=== PATIENT | male | born 1990 | race African-American/Black ===

== ENCOUNTER 2019-01-13 20:12 | Emergency (ER) | payer OTHER ==
[~2019-01-13] VITALS: Ht 185.4 cm; Wt 104.3 kg
[2019-01-13 20:24] VITALS: BP 133/75
--- NOTE | 2019-01-13 20:27 | NUR ---
ED Nurse Note: pt walked in c/o left eye pain and itching w/ swelling x 2days, pt reports blurry vision as well. no discharge but reports tearing. Noted redness with swelling eyelid, but no discharge at this time. ERMD at the bedside, visual acuity done, will cont monitor.
[2019-01-13] MEDS ORDERED: Fluorescein Strips LEFT EYE ONE (20:45)
[2019-01-13] MEDS ORDERED: Tetracaine 0.5% Opth 4ml Soln LEFT EYE ONE (20:45)
[2019-01-13] MEDS ORDERED: CLARITIN10 M2 ORAL (21:07)
[2019-01-13] MEDS ORDERED: NAPHCON-A EYE D15 ML OP (21:07)
[2019-01-13] MEDS ORDERED: GENTAK5 ML LEFT EYE (21:07)
--- NOTE | 2019-01-13 21:12 | NUR ---
ED Nurse Note: pt cleared to be d/c per ERMD, pt discharge and aftercare instruction provided w/ prescription, pt education done via discussion and handout, pt advised to follow up with plastic surgeon, return to ed if sx worsen or new sx develop, pt verbalized understanding and agrees with plan, pt left w/ all belongings.
[2019-01-13 21:14] VITALS: BP 133/75
--- NOTE | 2019-01-13 21:26 | Emergency Room Report ---
History of Present Illness General Chief Complaint: Eye Problems Source: Patient Present Illness HPI Patient is a 28-year-old male presented after increased left-sided eye discomfort which is been present for approximately 2 days. Patient had a noticed increased left eye swelling. He reports having some increased blurring of his vision. He denies any recent trauma. Patient denies any flashing lights or floaters. He reports having some moderate eyelid pain. Allergies: Coded Allergies: No Known Allergies (Unverified , 01/13/19) Patient History Past Medical History: see triage record Reviewed Nursing Documentation: PMH: Agreed; PSxH: Agreed Nursing Documentation-PMH Past Medical History: No Stated History Review of Systems All Other Systems: negative except mentioned in HPI Physical Exam Vital Signs Date Time Temp Pulse Resp B/P (MAP) Pulse Ox O2 Delivery O2 Flow Rate FiO2 01/13/19 20:18 97.9 60 16 133/75 98 Room Air General Appearance: well appearing, no apparent distress, alert, GCS 15 Head: normocephalic, atraumatic Eyes: bilateral eye PERRL, bilateral eye EOMI ENT: hearing grossly normal, normal voice Neck: full range of motion, supple Respiratory: chest non-tender, lungs clear, no respiratory distress, speaking full sentences Gastrointestinal: normal inspection Musculoskeletal: no calf tenderness Neurologic: normal inspection, alert, oriented x3, responsive, normal gait Psychiatric: mood/affect normal Skin: no rash Medical Decision Making Diagnostic Impression: Primary Impression: Conjunctivitis ER Course Patient presented for left eye lid swelling. Differential diagnosis include was not limited to stye, conjunctivitis, iritis among others. Patient has a benign exam and does not appear to require any further imaging or laboratory testing at this time. The patient is advised to follow up with triage specialist in 1-2 days. Patient is advised to return if any worsening condition or if any changes in status that are concerning. This report is dictated with [employer] software which may occasionally lead to discrepancies related to use of this software. Last Vital Signs Date Time Temp Pulse Resp B/P (MAP) Pulse Ox O2 Delivery O2 Flow Rate FiO2 01/13/19 21:14 97.9 60 16 133/75 98 Room Air Status: improved Disposition: HOME, SELF-CARE Condition: Stable Scripts Gentamicin Sulfate* (GENTAK*) 5 Ml Drops 1 DROP LEFT EYE Q4H, #1 DROP 0 Refills Prov: Aram Stratton MD 01/13/19 Loratadine (CLARITIN) 10 Mg Capsule 10 MG ORAL DAILY, #20 CAP Prov: Aram Stratton MD 01/13/19 Naphazoline Hcl/Phenir Mal (NAPHCON-A EYE DROPS) 15 Ml Drops 15 ML OP DAILY, #15 ML Prov: Aram Stratton MD 01/13/19 Referrals: NOT CHOSEN IPA/,REFERRING (PCP) Patient Instructions: Allergic Conjunctivitis Aram Stratton MD Jan 13, 2019 21:26
== END 2019-01-13 21:10 | disposition home or self-care (01) ==
LOC: EMR 20:33
DX: H10.9 Unspecified conjunctivitis (principal)
CPT/HCPCS: 99282